=== PATIENT | male | born 1980 | race Caucasian/White ===

== ENCOUNTER 2024-07-22 12:29 | Emergency (ER) | payer OTHER ==
[~2024-07-22] VITALS: Ht 180.3 cm; Wt 74.8 kg
[2024-07-22] MEDS ORDERED: Bactrim Ds Tab1 EACH PO ×2 (14:45)
== END 2024-07-22 15:10 | disposition home or self-care (01) ==
LOC: ER 12:29
DX: L02.511 Cutaneous abscess of right hand (principal); L03.011 Cellulitis of right finger
CPT/HCPCS: 10060; 87070; 87077; 87147; 87186; 87205; 99282-25